=== PATIENT | male | born 1985 | race Caucasian/White ===

== ENCOUNTER 2017-03-10 14:18 | Emergency (ER) | payer OTHER ==
[2017-03-10 14:42] VITALS: BP 139/62
[2017-03-10] MEDS ORDERED: predniSONE TAB* 20 MG PO ONE ×2 (14:58→14:59)
--- NOTE | 2017-03-10 15:03 | UC ---
Skin Complaint HPI - HPI Summary HPI Summary: 31 yo male with left hand edema and pruritis x 2 days was stung by a bee has had hives in past for bee stings no hives or generalized pruritis - History of Current Complaint Chief Complaint: UCSkin Time Seen by Provider: 03/10/17 14:51 Stated Complaint: LEFT HAND SWOLLEN BEE STING 2 DAYS AGO Hx Obtained From: Patient Onset/Duration: Sudden Onset, Lasting Days Timing: Constant Onset Severity: Mild Current Severity: Mild Pain Intensity: 1 Pain Scale Used: 0-10 Numeric Location: Discrete Character: Swelling, Pruritus, Raised Aggravating: Nothing Alleviating: Antihistamines Associated Signs & Symptoms: Positive: Negative Related History: Insect Bite/Sting - Allergy/Home Medications Allergies/Adverse Reactions: Allergies Allergy/AdvReac Type Severity Reaction Status Date / Time Bee Venom Allergy Hives Verified 03/10/17 14:43 Home Medications: Home Medications Diphenhydramine HCl [Benadryl Allergy 25 MG CAP] 50 mg PO DAILY PRN 03/10/17 [ History Confirmed 03/10/17] Diphenhydramine-Zinc Acetate [Anti-Itch] 1 cre EX BID PRN 03/10/17 [History Confirmed 03/10/17] Hydrocortisone 1% CREAM* [Hytone Cream 1%*] 1 applic TOPICAL ONCE PRN 03/10/17 [ History Confirmed 03/10/17] Review of Systems Constitutional: Negative Skin: Negative Eyes: Negative ENT: Negative Respiratory: Negative Cardiovascular: Negative Gastrointestinal: Negative Genitourinary: Negative Motor: Negative Neurovascular: Negative Musculoskeletal: Edema Neurological: Negative Psychological: Negative All Other Systems Reviewed And Are Negative: Yes PMH/Surg Hx/FS Hx/Imm Hx Previously Healthy: Yes - Surgical History Surgical History: Yes Surgery Procedure, Year, and Place: tonsils - Family History Known Family History: Positive: Hypertension - Social History Alcohol Use: Occasionally Alcohol Amount: 6-7/twice amonth Substance Use Type: None Smoking Status (MU): Never Smoked Tobacco - Immunization History Most Recent Tetanus Shot: unsure Physical Exam Triage Information Reviewed: Yes Appearance: Well-Appearing, No Pain Distress, Well-Nourished Vital Signs: Initial Vital Signs Temp 99 F 03/10/17 14:37 Pulse 59 03/10/17 14:37 Resp 20 03/10/17 14:37 BP 139/62 03/10/17 14:37 Eyes: Positive: Conjunctiva Clear ENT: Positive: Hearing grossly normal. Negative: Nasal congestion, Nasal drainage, Tonsillar exudate, Trismus, Muffled/hoarse voice Neck: Positive: Supple, Nontender, No Lymphadenopathy Respiratory: Positive: Lungs clear, Normal breath sounds, No respiratory distress Cardiovascular: Positive: RRR, No Murmur Musculoskeletal: Positive: ROM Intact Neurological Exam: Normal Psychological Exam: Normal Skin Exam: Normal Course/Dx - Diagnoses Provider Diagnoses: local reaction to insect sting left hand Discharge - Discharge Plan Condition: Stable Disposition: HOME Prescriptions: Prednisone 60 mg PO DAILY #6 tab Patient Education Materials: Insect Bite or Sting (ED) Referrals: Tonya Lynn MD [Primary Care Provider] - Additional Instructions: elevate elevate elevate ice twice daily benadryl if needed you BP is a littler higher than we like to see it please get it rechecked at some point if you don't have a doctor please see list
== END 2017-03-10 15:10 | disposition home or self-care (01) ==
LOC: UCCORT 14:18
DX: T63.441A Toxic effect of venom of bees, accidental (unintentional), initial encounter (principal); Y92.9 Unspecified place or not applicable
CPT/HCPCS: 99202; G0463; J7512